=== PATIENT | male | born 1995 | race Caucasian/White ===

== ENCOUNTER → 2020-10-30 14:27 | Outpatient (CLI) | payer OTHER, SELFPAY ==
[2020-10-30 17:07] LABS: COVID19 -Nasal RAPID Negative (Negative)
== END ==
PROVIDERS: Visit Provider Nurse Practitioner
DX: Z01.812 Encounter for preprocedural laboratory examination (principal); Z20.822 Contact with and (suspected) exposure to COVID-19
CPT/HCPCS: 87635

== ENCOUNTER 2020-11-01 14:50 | Day surgery (SDC) | payer OTHER, SELFPAY ==
--- NOTE | 2020-11-01 | PATH_ITS ---
[facility] Accession Number: [id number] . 01 Material submitted: . PART A: small bowel - SMALL BOWEL BIOPSY PART B: esophagus - DISTAL ESOPHAGUS BIOPSY PART C: esophagus - PROXIMAL ESOPHAGUS BIOPSY . 01 Clinical history: . EGD A: RULE-OUT CELIAC DISEASE . 02 Diagnosis: A. Small Bowel, Biopsy: Duodenal mucosa with no diagnostic abnormality. Negative for active inflammation, features of sprue, dysplasia, or malignancy. . B. Distal Esophagus, Biopsy: Squamous epithelium with increased intraepithelial eosinophils (up to 15 eosinophils per high-power field). See comment. Negative for dysplasia and malignancy. . C. Proximal Esophagus, Biopsy: Squamous epithelium with up to 5 eosinophils per high-power field. Negative for dysplasia or malignancy. [facility] 11/06/2020 1041 Local . 02 Comment: Part B: In the proper clinical setting, the histopathologic appearance would support a clinical impression of eosinophilic esophagitis. The differential diagnosis includes drug reaction, gastroesophageal reflux, and food allergies. . . 02 Electronically signed: . Orestes Castro MD, PhD, Pathologist NPI- [id number] . 01 Gross description: . Part A: SMALL BOWEL BIOPSY: Received in formalin are 3 fragment(s) of rizo, soft tissue measuring 0.1 x 0.1 x 0.1 cm to 0.3 x 0.2 x 0.2 cm submitted entirely in 1 cassette(s) Part B: DISTAL ESOPHAGUS BIOPSY: Received in formalin are 3 fragment(s) of rizo, soft tissue measuring 0.1 x 0.1 x 0.1 cm to 0.3 x 0.3 x 0.2 cm submitted entirely in 1 cassette(s) Part C: PROXIMAL ESOPHAGUS BIOPSY: Received in formalin are 3 fragment(s) of rizo, soft tissue measuring 0.1 x 0.1 x 0.1 cm to 0.3 x 0.2 x 0.2 cm submitted entirely in 1 cassette(s) /DISHA 11/04/2020 0150 Local . 02 Pathologist provided ICD-10: K20.0 . 02 CPT . 988696, 170031, [id number] Performed at: 01 [facility] [address] [place] [address], [place], [place] [id number] MD Casey Simeon MD Phone: [phone] Performed at: [address] [facility] [id number] [place], [place] [id number] MD Theresa Flores MD Phone: [phone]
--- NOTE | 2020-11-01 08:21 | PM.HP.1 ---
History of Present Illness History of Present Illness Date Patient Seen: 11/01/20 Chief complaint: EGD Narrative: 25-year-old male with a history of EOE diagnosed in 2014 seen in our office on 07/13/2020 who is here for repeat sampling Meds Home Medications and Allergies Home Medications Medication Instructions Recorded Confirmed Type omeprazole 20 mg PO DAILY 11/01/20 11/01/20 History Allergies Allergy/AdvReac Type Severity Reaction Status Date / Time No Known Drug Allergies Allergy Verified 11/01/20 15:04 Exam Narrative Exam Narrative: General: Patient is well developed, not in apparent distress Cardiovascular: Regular rate and rhythm, no murmurs, rubs, or gallops; no evidence of edema; no palpable abdominal aortic aneurysm Gastrointestinal: Normoactive bowel sounds, soft, nontender, nondistended, no rebound tenderness, no hepatosplenomegaly, no evidence of hernia Assessment & Plan Assessment & Plan narrative: 25-year-old male with history of eosinophilic esophagitis here for resampling of esophagus to assess disease activity Regarding the procedure(s), the risks and potential complications, benefits, and alternatives (including not doing the procedure) were discussed with the patient. The risks include but are not limited to bleeding, splenic injury, infection, perforation which may require surgical intervention, missed lesions, and adverse reactions to sedative medicines. After a question and answer period, the patient agreed to proceed with the procedure(s) and gives informed consent.
[2020-11-01 15:08] VITALS: BP 123/75; PULSE 58; RESP 16; TEMP 36.6; O2SAT 97; BMI 21.2
--- NOTE | 2020-11-01 15:12 | PM.OP.ENDO ---
Operative Date/Time/Diagnoses Date of procedure: 11/01/20 Procedure Notes Procedure in detail: Surgeon: Keith Rodríguez MD Procedure: Esophagogastroduodenoscopy with biopsy Preoperative diagnosis: Eosinophilic esophagitis Postoperative diagnosis: Eosinophilic esophagitis as was biopsies; small bowel biopsies to rule out celiac disease Medications: Monitored anesthesia care as prior EGDs were performed with anesthesia Preanesthesia Assessment An H and P was performed/updated and the Px?s ASA class is 1. The procedure was discussed in detail with the patient. The potential risks and complications including infection, bleeding, missed lesions, perforation, need for surgery in case of perforation, prolonged hospital stay, and were explained. A brief question and answer period was allotted and once all questions were answered, informed consent was obtained. The patient was brought back to the procedure room and placed on standard monitoring. The patient?s vital signs were monitored continuously throughout the entire procedure. Prior to starting, a timeout was performed to confirm the patient?s identity, allergies, medications, and procedure. Procedure in detail The patient was placed in left lateral decubitus position and a bite block was inserted. The tip of the upper endoscope was placed into the mouth and advanced without difficulty under direct visualization into the esophagus. Esophagus: The esophageal mucosa showed mild linear furrows in the mid and distal esophagus. There was no evidence of luminal narrowing. There were transient rings seen in the distal esophagus. Biopsies were taken from the proximal and distal esophagus with minimal bleeding Stomach: The gastric mucosa appeared normal throughout the entire stomach. Retroflexion performed in the stomach showed no evidence of lesions in the gastric fundus or cardia Duodenum: The duodenal mucosa appeared normal up to the 2nd portion of the duodenum. Biopsies were taken to rule out celiac disease with minimal bleeding The patient tolerated the procedure well and will be brought back to the recovery area to be discharged once criteria are met. Complications There were no complications and estimated blood loss was minimal. Recommendations: Resume previous diet Continue outPx medications Follow up pathology results Our office ([facility]) will call you to schedule a follow-up visit with me to discuss the biopsy results and further recommendations An emergency contact number was given to the patient for any complications related to the procedure
[2020-11-01] MEDS: SODIUM CHLORIDE 0.9% 1,000 ML 70 ML IV (15:16)
[2020-11-01 16:07] VITALS: BP 107/68; PULSE 66; RESP 13; TEMP 36.4; O2SAT 98
[2020-11-01 16:10] VITALS: BP 108/55; PULSE 66; RESP 13; O2SAT 98
[2020-11-01 16:18] VITALS: BP 106/77; PULSE 68; RESP 13; O2SAT 98
== END 2020-11-01 16:30 | disposition home or self-care (01) ==
PROVIDERS: PCP Family Medicine; Referring Provider Internal Medicine Gastroenterology; Visit Provider Internal Medicine Gastroenterology
PROC: 0DJ08ZZ Inspection of Upper Intestinal Tract, Via Natural or Artificial Opening Endoscopic (ICD-10-PCS; CPT 43235; principal; 2020-11-01 16:00)
DX: K20.0 Eosinophilic esophagitis (principal)
CPT/HCPCS: 43239; J2250; J2704; J3010

== ENCOUNTER → 2021-02-23 15:26 | Outpatient (CLI) | payer OTHER, SELFPAY ==
--- NOTE | 2021-02-23 15:27 | DI.MRI.S_ITS ---
PROCEDURE: MR PELVIS WO CON INDICATIONS: PIRIFORMIS SYNDROME OF LEFT SIDE TECHNIQUE: Noncontrast coronal and axial T1 spin echo and STIR , sagittal STIR, T1 weighted through the bony pelvis. COMPARISON: [facility] Outside Film, CR, XR PELVIS WITH LATERAL HIP LEFT, 10/12/2020, 14:42. FINDINGS: Image quality: Excellent. Bones: A presumed T1/T2 hyperintense hemangioma seen within the S1 segment of the sacrum. No intraosseous lesions or fractures identified. Lower lumbar spondylosis and facet arthropathy Tendons: The gluteus medius and minimus tendons appear intact, without associated muscle atrophy. The nearby proximal iliotibial band also appears intact. The iliopsoas tendon appears intact, without adjacent bursal fluid collections or evidence for impingement syndrome. The origin of the hamstring tendon is intact at the ischial tuberosity, as well as the associated sacrotuberous ligament. The straight and reflected heads of the rectus femoris muscle origin appear intact, as well as the conjoint tendon. There is seen T2 hyperintensity seen within the right piriformis without muscle atrophy. This appears slightly asymmetric to the contralateral side . This finding is quite subtle. No joint effusions. No free pelvic fluid. Bladder wall thickness is normal. Genitourinary structures and bowel loops appear normal where visualized. IMPRESSION: Minimal T2 hyperintensity involving the right piriformis muscle. No atrophy identified. This is of doubtful clinical significance given reported left-sided symptoms. Dictated by: Al Rodriguez M.D. on 02/23/2021 at 16:18 Approved by: Al Rodriguez M.D. on 02/23/2021 at 16:25
== END ==
PROVIDERS: PCP Family Medicine; Referring Provider Physical Medicine & Rehabilitation; Visit Provider Physical Medicine & Rehabilitation
DX: G57.02 Lesion of sciatic nerve, left lower limb (principal)
CPT/HCPCS: 72195

== ENCOUNTER → 2021-04-13 13:32 | Outpatient (CLI) | payer OTHER, SELFPAY ==
--- NOTE | 2021-04-13 | DI.MRI.S_ITS ---
PROCEDURE: MR LUMBAR SPINE WO CON INDICATIONS: Radiculopathy, lumbar region TECHNIQUE: Noncontrast sagittal T1 spin echo and T2 fast echo, sagittal STIR, axial T1 and T2 fast spin echo through the lumbar spine. In cases with scoliosis, additional coronal T2 fast spin echo may be performed. COMPARISON: None. FINDINGS: Image quality: Excellent. Alignment and Curvature: There is normal bony alignment. Bone Marrow: Marrow is of normal overall signal. Minimal reactive endplate changes are noted at L4-5. Increased T1 and T2 signal is present at S1 most suggestive of hemangioma. No acute vertebral body compression fractures. Spinal Cord: Conus medullaris terminates at the L1 level. Visualized cord demonstrates normal signal and size. Paraspinous Soft Tissues: No paravertebral masses. Discs: [id number] desiccation is present at L4-5. L1-L2: No disc bulge, spinal stenosis or foraminal narrowing. L2-L3: No disc bulge, spinal stenosis or foraminal narrowing. L3-L4: No disc bulge, spinal stenosis or foraminal narrowing. L4-L5: Mild disc bulge with small superimposed posterior left paracentral protrusion. Mild spinal stenosis is present. No foraminal narrowing. L5-S1: Minimal disc bulge without spinal stenosis or foraminal narrowing. IMPRESSION: 1. Minimal early degenerative changes most notable at L4-5. Dictated by: Whitley Murillo M.D. on 04/13/2021 at 15:34 Approved by: Whitley Murillo M.D. on 04/13/2021 at 15:38
== END ==
PROVIDERS: PCP Family Medicine; Referring Provider Physical Medicine & Rehabilitation; Visit Provider Physical Medicine & Rehabilitation
DX: M54.16 Radiculopathy, lumbar region (principal)
CPT/HCPCS: 72148

== ENCOUNTER → 2021-10-05 15:11 | Outpatient (CLI) | payer OTHER, SELFPAY ==
[2021-10-05 16:05] LABS: COVID19 -Nasal RAPID Negative (Negative)
== END ==
PROVIDERS: PCP Family Medicine; Visit Provider Family Medicine Sleep Medicine
DX: Z20.822 Contact with and (suspected) exposure to COVID-19 (principal)
CPT/HCPCS: 87635; C9803

== ENCOUNTER 2021-10-08 11:51 | Day surgery (SDC) | payer OTHER, SELFPAY ==
[2021-10-08] VITALS (11 sets, daily range): BP systolic 91–129; BP diastolic 49–79; PULSE 61–88; RESP 14–18; TEMP 36.2–37; O2SAT 93–100; BMI 20.5
[2021-10-08] MEDS: SCOPOLAMINE 1 PATCH TOP (12:24)
[2021-10-08] MEDS: ACETAMINOPHEN 325 MG TABLET 975 MG PO (12:24)
[2021-10-08] MEDS: GABAPENTIN 300 MG CAPSULE PO (12:24)
[2021-10-08] MEDS: LACTATED RINGERS 1,000 ML 42 ML IV (12:25)
--- NOTE | 2021-10-08 12:34 | PM.PREOP ---
Pre-operative Note COVID-19 COVID-19 status: Negative Result date/Date tested (Pos, Neg/Pending): 10/07/21 Criteria for continued procedure: Expected advancement of disease process, Possibility delay results in more complex future surgery or treatment, Increased loss of function, Continuing or worsening of significant or severe pain, Deterioration of the patient's condition or overall health, Delay expected to result in less-positive ultimate med/surg outcome and Non-surgical alternatives not available or appropriate per current SOC Interval Note History & Physical reviewed/Exam performed by Physician: Yes Changes to H&P: No
[2021-10-08] MEDS: CEFAZOLIN 2 GM/20 ML SYRINGE IV (12:54)
[2021-10-08] MEDS: BUPIVACAINE 0.25% (PF) 30 ML, EPINEPHrine 0.3 MG INJ (13:08)
--- NOTE | 2021-10-08 13:09 | SUR.OPER ---
Prone on spine table, head in foam head support, padded chest and pelvic supports, gel pad at knees, lower legs supported by pillows; nipples, genitalia and toes free of pressure, arms secured on foam padded arm boards at <90 degrees abduction. Tape over blanket at thigh secured to table. Gel pad placed between patients heels. Patients cell phone placed in patients belongings bag in pre-op area.
--- NOTE | 2021-10-08 13:29 | P.OP_ITS ---
Operative Date/Time/Diagnoses Date of procedure: 10/08/21 Time of procedure: 12:00 Pre-op diagnosis: 1. L4-5 disc herniation 2. L4-5 radiculopathy Post-op diagnosis: same Procedure & Clinicians Procedure: 1. L4-5 left microdiscectomy 2. Utilization of microsurgical technique and operating microscope Same procedure as scheduled: Yes Indications: Patient has been having chronic back pain and worsening lumbar radiculopathy. Patient failed multiple conservative management with worsening pain weakness and numbness in her lower extremity. Patient has been having difficulty performing activity of daily living. After discussing risks benefits of treatment options, patient elected proceed with surgery. Surgeon: Laina Desir [id number] Android Developer: Maryanne Zelaya Click Yes if Unassisted: No Anesthesia Type: General Operative Notes Closure Type: primary Specimen(s): none sent Estimated Blood Loss (mL): 5 Blood products transfused: none Procedure in detail: Patient was seen in the preoperative area. Risks and benefits of the surgery was discussed with the patient. Informed consent was obtained from the patient and placed in the chart. Surgical site was marked. Patient was taken to the operative room. General anesthesia was administered. Prophylactic antibiotic was given to the patient less than 30 min before the incision was made. Patient was placed into a prone position on the Codey table. Patient's back was then prepped and draped in the sterile fashion. Time-out was performed at this time. Using AP and lateral C-arm imaging the interval between L4-5 was identified and marked on patient's back. A 1 inch incision 1 in from midline was made on the left side. The fascia was incised in line with skin incision. Globus MARS retractors was placed inside the incision and docked onto the L4 lamina. Using microsurgical technique and operating microscope, a L4 laminotomy was performed using a Kerrison rongeur. Liagamentum flavum was resected at the site of the laminotomy. The disc space at L4-5 was identified. Microdiscectomy was performed by incising the annulus with #11 blade. Microcurettes and pituitary was used to removed herniated disc fragments of disc from the epidural space. Patient was also found to have epidural lipomatosis contributing to his spinal stenosis. The lipoma this was carefully removed from the epidural space to further decompress the epidural space. After the microdiskectomy was completed, the area medial lateral superior and inferior to the area of the microdiskectomy was inspected and explored using a micro curette. No other impinging structure was identified. The wound was then irrigated with sterile normal saline. 40 mg Depo-Medrol was placed into the epidural space. The deep fascia was closed with 1-0 Vicryl. The subcutaneous tissue was closed with 2-0 Vicryl. The skin was closed with skin ricco. Patient tolerated the procedure well. There were no complications. Patient was transferred recovery room in stable condition. Complications: none Post-operative Condition: stable Disposition: PACU Plan for aftercare: Discharge to home
--- NOTE | 2021-10-08 13:31 | DI.RAD.S_ITS ---
PROCEDURE: XR LUMBAR SPINE 2-3V INDICATIONS: L4-5 MICRODISKECTOMY TECHNIQUE: 3 views of the lumbar spine were acquired. COMPARISON: None. FINDINGS: Intraoperative AP and lateral views demonstrate localizer at the posterior left paramedian spine at the level of the L4-L5 disc. IMPRESSION: Localizer at the level of the L4-L5 disc. Dictated by: Whit Massey MD, PhD on 10/08/2021 at 16:23 Approved by: Whit Massey MD, PhD on 10/08/2021 at 16:24
[2021-10-08] MEDS: fentaNYL 100 MCG/2 ML INJ IV ×2 (14:00→14:06)
[2021-10-08] MEDS: ONDANSETRON 4 MG/2 ML INJ IV (14:00)
[2021-10-08] MEDS: OXYCODONE IR 5 MG TABLET PO (14:08)
== END 2021-10-08 15:00 | disposition home or self-care (01) ==
PROVIDERS: PCP Family Medicine; Referring Provider Physical Medicine & Rehabilitation; Visit Provider Orthopaedic Surgery Orthopaedic Surgery of the Spine
PROC: (CPT 63030; principal; 2021-10-08 13:45)
DX: M51.26 Other intervertebral disc displacement, lumbar region (principal); M54.16 Radiculopathy, lumbar region; K21.9 Gastro-esophageal reflux disease without esophagitis
CPT/HCPCS: 63030; 72100; 76000; J0171; J0330; J0690; J1100; J2250; J2405; J2704; J2920; J3010

== ENCOUNTER 2023-09-11 10:05 | Day surgery (SDC) | payer OTHER, SELFPAY ==
[2023-09-08 12:20] VITALS: BMI 21.1
[2023-09-11] VITALS (7 sets, daily range): BP systolic 113–129; BP diastolic 69–82; PULSE 61–90; RESP 12–17; TEMP 36.4–36.8; O2SAT 96–99; BMI 21.1
--- NOTE | 2023-09-11 10:48 | PM.PREOP ---
Pre-operative Note Interval Note History & Physical reviewed/Exam performed by Physician: Yes Changes to H&P: No
--- NOTE | 2023-09-11 10:49 | P.HP_ITS ---
History of Present Illness History of Present Illness Date Patient Seen: 09/11/23 Time Patient Seen: 10:49 Chief complaint: ENT Narrative: 28-year-old male last seen in clinic 05/26/2023 presents for scheduled endoscopic sinus surgery and inferior turbinate reduction as outpatient. He decided not to trial the budesonide irrigations and has held his Celebrex for the last 7 days. His last sinus CT 04/14/2023 was again reviewed. No interval health changes, wishes to proceed. [facility] Medical History Anesthesia complication History of esophageal dilatation Psoriatic arthritis PTSD (post-traumatic stress disorder) Nasal turbinate hypertrophy Chronic pansinusitis History of COVID-19 (2021) Eosinophilic esophagitis (2014) Ringing in ears Headache Herniated lumbar intervertebral disc Surgical History History of thoracic surgery (2020) Hx of microdiscectomy (10/08/21) H/O left wrist surgery (2013) [place] teeth removed (2012) History of vasectomy (2013) Social History household members: spouse Smoking Status: Never smoker alcohol intake: current Meds Home Medications and Allergies Home Medications Medication Instructions Recorded Confirmed Type pantoprazole 40 mg tablet,delayed 40 mg PO DAILY 09/08/23 09/11/23 History release (Protonix) celecoxib 200 mg capsule 200 mg PO DAILY 09/11/23 09/11/23 History Allergies Allergy/AdvReac Type Severity Reaction Status Date / Time No Known Drug Allergies Allergy Verified 09/11/23 10:23 Review of Systems Review of Systems Narrative: Negative except as listed in the HPI Exam Vital Signs (past 8 hours): - 09/11/23 10:30 Temperature 97.5 F L Pulse Rate 61 Respiratory Rate 17 Blood Pressure 113/73 Pulse Oximetry 99 Oxygen Delivery Method Room Air Oxygen Delivery Method Room Air Narrative Exam Narrative: Well-developed well-nourished, heart regular rate and rhythm without murmur, lungs clear to auscultation bilaterally Assessment & Plan Assessment & Plan narrative: Assessment: Chronic rhinosinusitis, nasal airway obstruction, facial pressure, possible nasal polyposis, inferior turbinate hypertrophy, postnasal drip, cough Plan: Following discussion of the material risks benefits complications and alternatives, the patient elected to proceed.
[2023-09-11] MEDS: LACTATED RINGERS 1,000 ML 42 ML IV ×2 (10:50→12:33)
[2023-09-11] MEDS: SCOPOLAMINE 1 PATCH TOP (10:50)
--- NOTE | 2023-09-11 10:52 | P.OP_ITS ---
Operative Date/Time/Diagnoses Date of procedure: 09/11/23 Time of procedure: 13:23 Pre-op diagnosis: Chronic rhinosinusitis with possible nasal polyposis, nasal airway obstruction, facial pain, inferior turbinate hypertrophy, postnasal drip, cough Post-op diagnosis: same (Nasal polyposis) Procedure & Clinicians Procedure: 1. Bilateral endoscopic maxillary antrostomy 2. Bilateral endoscopic total ethmoidectomy 3. Bilateral inferior turbinate reduction via intramural cautery Same procedure as scheduled: Yes Indications: 28 Year old with the above diagnoses incompletely managed with medical therapy presents for the above procedure. Following discussion of the material risks benefits complications and alternatives, the patient elected to proceed. Surgeon: Marcello Armijo Click Yes if Unassisted: Yes Anesthesia Type: General and Local Operative Notes Findings: bilat mod inf turb hypertrophy. Small polyps each middle meatus, SER, and filling ethmoids. Mild to mod inflammation of ethmoids, relative sparing of maxillaries. Estimated Blood Loss (mL): 150 Procedure in detail: Following identification and confirmation of consent, the patient was brought to the operating room suite and placed in the supine position. Cotton with Afrin and 4% lidocaine was placed in the nose and the head of each inferior turbinate was infiltrated with 1% lidocaine 1 100,000 epinephrine. General endotracheal anesthesia was administered. Following sterile prep and drape, the packing was removed and a 22 gauge spinal needle was used to impale from the head of the inferior turbinate posteriorly with cautery on a setting of 15 applied on slow withdrawal, on each of 2 passes. Each turbinate was treated identically and then outfractured. Under endoscopic guidance I infiltrated the posterior and anterior superior insertion of the each middle turbinate, and each middle meatus was packed with 1/4 inch pledgets soaked in epinephrine 1-[address] for approximately 10 minutes. The left middle turbinate was then slightly medialized and the backbiting forceps performed uncinectomy along with the microdebrider. Maxillary antrostomy was created by extending the natural os posteriorly and inferiorly. The ethmoid bulla was resected with the microdebrider. I penetrated the basal lamella inferiorly and medially to enter the posterior ethmoids and trimmed a small portion of the superior turbinate. The natural os of the sphenoid sinus was not identified nor manipulated. Posterior to anterior ethmoid dissection was performed with the J curette and forceps although the frontal recess was not approached. Hemostasis with additional topical epi and Afrin and lidocaine on cotton was performed, eventually some suction electrocautery including primarily the raw surface of the partially reduced head of each middle turbinate. This process was repeated on the right side with similar findings, including the maxillary antrostomy, anterior ethmoidectomy penetration of the basal lamella, posterior ethmoidectomy. Hemostasis was assured. Small sponge counts were correct and he was extubated in the operating room and taken to recovery room in stable condition without no complication. Complications: none Post-operative Condition: stable Disposition: same day surgery Plan for aftercare: Nasal saline every hour while awake, begin irrigations t.i.d. tomorrow WITH BUD ESONIDE. Polysporin to the nostrils at all times, Tylenol alternating with Advil for pain control, oxycodone for breakthrough pain. Elevate head of bed, no nose blowing, no straining for 2 weeks. Follow-up in 1 week.
[2023-09-11] MEDS: OXYMETAZOLINE NASAL SPRAY 30 ML 2 SPRAYS NASAL ×2 (11:15→11:31)
[2023-09-11] MEDS: EPINEPHrine 1 MG/ML 6 MG TOP (11:32)
[2023-09-11] MEDS: LIDOCAINE 1% W/EPI 20 ML INJ (11:33)
[2023-09-11] MEDS: LIDOCAINE 4% SOLN 50 ML 20 ML TOP (11:34)
--- NOTE | 2023-09-11 11:37 | SUR.OPER ---
Supine on padded OR bed, head on pillow, arms padded and tucked at sides, legs uncrossed, safety belt at thigh, tape over blanket over lower legs .
[2023-09-11] MEDS: ACETAMINOPHEN IV 1,000 MG/100 ML VIAL 400 MG IV (12:16)
[2023-09-11] MEDS: OXYCODONE IR 5 MG TABLET PO (13:44)
== END 2023-09-11 14:47 | disposition home or self-care (01) ==
PROVIDERS: Referring Provider Otolaryngology; Visit Provider Otolaryngology
PROC: (CPT 31231; principal; 2023-09-11 11:00)
DX: J34.3 Hypertrophy of nasal turbinates (principal); J33.9 Nasal polyp, unspecified; J34.89 Other specified disorders of nose and nasal sinuses; J32.4 Chronic pansinusitis
CPT/HCPCS: 31255; 31256; 30802; J0136; J0171; J1100; J2250; J2405; J3010

== ENCOUNTER → 2023-12-24 09:28 | Outpatient (CLI) | payer OTHER, SELFPAY | LOC: RESP 12-25 09:28 | PROVIDERS: Referring Provider Chiropractor; Visit Provider Chiropractor | DX: R06.02 Shortness of breath (principal); J98.8 Other specified respiratory disorders | CPT/HCPCS: 94060 ==

== ENCOUNTER → 2023-12-24 15:05 | Outpatient (CLI) | payer OTHER, SELFPAY ==
--- NOTE | 2023-12-24 15:11 | DI.RAD.S_ITS ---
PROCEDURE: XR CHEST 2V INDICATIONS: SHORTNESS OF BREATH TECHNIQUE: 2 views of the chest were acquired. COMPARISON: None. FINDINGS: Surgical changes and devices: None. Lungs and pleura: Lungs are clear. No pleural effusions or pneumothorax. Mediastinum: Mediastinal contours are normal. Heart size is normal. Bones and chest wall: No suspicious bony abnormalities. Soft tissues appear unremarkable. IMPRESSION: No acute cardiopulmonary abnormality is seen. Dictated by: Parminder Howell M.D. on 12/24/2023 at 17:09 Approved by: Parminder Howell M.D. on 12/24/2023 at 17:09
== END ==
LOC: RAD 15:08
PROVIDERS: Referring Provider Chiropractor; Visit Provider Chiropractor
DX: R06.02 Shortness of breath (principal); J98.8 Other specified respiratory disorders
CPT/HCPCS: 71046; 94060

== ENCOUNTER → 2024-02-16 09:56 | Outpatient (CLI) | payer OTHER, SELFPAY ==
--- NOTE | 2024-02-16 09:58 | DI.RAD.S_ITS ---
PROCEDURE: XR HAND LT 2V INDICATIONS: HAND PAIN TECHNIQUE: 2 views of the hand(s) acquired. COMPARISON: None. FINDINGS: Bones: No fractures or dislocations. Carpal bones are normally aligned. No suspicious bony lesions. Soft tissues: No suspicious soft tissue calcifications. IMPRESSION: No visualized acute fracture or dislocation. However, if clinical concern and/or pain persist, short interval imaging followup in 7-10 days is recommended, as occult injury cannot be definitively excluded. Dictated by: Whitley Murillo M.D. on 02/16/2024 at 15:58 Approved by: Whitley Murillo M.D. on 02/16/2024 at 15:58
== END ==
PROVIDERS: Referring Provider Chiropractor; Visit Provider Chiropractor
DX: M84.40XA Pathological fracture, unspecified site, initial encounter for fracture (principal)
CPT/HCPCS: 73120